=== PATIENT | female | born 1990 | race Caucasian/White ===

== ENCOUNTER 2024-12-06 15:30 | Outpatient (CLI) | payer SELFPAY ==
[2024-12-06 16:42] LABS: #Basophils 0.06 10x3/uL (0.0-0.2); #Monocytes 0.53 10x3/uL (0.0-1.1); #Neutrophils 3.76 10x3/uL (1.5-8.4); %Basophils 0.9 % (0.0-2.0); %Eosinophils 1.5 % (0.0-6.0); %Lymphocytes 31.8 % (18.0-47.0); %Monocytes 8.1 % (0.0-10.0); %Neutrophils 57.4 % (40.0-75.0); Hematocrit 44.7 % (34.9-44.5); Hemoglobin 14.8 g/dL (12.0-15.5); Mean Corpuscular HGB CONC 33.1 g/dL (32.0-36.0); Mean Corpuscular Hemoglobin 29.1 pg (27.0-33.0); Mean Corpuscular Volume 87.8 fL (81.6-98.3); Mean Platelet Volume 9.9 fL (7.4-10.4); Platelet Count 382 10x3/uL (150-450); RBC Distribution Width 12.1 % (11.5-14.5); Red Blood Cell (RBC) Count 5.09 10x6/uL (3.90-5.03); White Blood Cell (WBC) Count 6.55 10x3/uL (3.5-10.5)
[2024-12-06 17:02] LABS: ALT (SGPT) 29 U/L (8-55); AST (SGOT) 21 U/L (5-34); Albumin 4.2 g/dL (3.5-5.0); Alkaline Phosphatase 68 U/L (40-110); Anion Gap 15 mmol/L (10-20); BUN (Urea Nitrogen) 9 mg/dL (7.0-18.7); Bilirubin, Direct 0.2 mg/dL (0.1-0.3); Bilirubin, Total 0.5 mg/dL (0.2-1.2); Calc. Creatinine Clearance 0 mL/min (70-130); Calcium 9.8 mg/dL (7.8-10.44); Carbon Dioxide 22 mmol/L (22-29); Chloride 105 mmol/L (98-107); Estimated GFR 104; Glucose 76 mg/dL (70-105); Potassium 4.2 mmol/L (3.5-5.1); Protein, Total 8.2 g/dL (6.0-8.3); Sodium 138 mmol/L (136-145)
== END 2024-12-06 15:31 | disposition home or self-care (01) ==
LOC: CSHLAB 15:30
PROVIDERS: ATTEND Surgery
DX: Z01.812 Encounter for preprocedural laboratory examination (principal); K81.9 Cholecystitis, unspecified
CPT/HCPCS: 80048; 80076; 85025

== ENCOUNTER 2024-12-08 06:39 | Day surgery (SDC) | payer SELFPAY ==
[2024-12-08] MEDS ORDERED: Indocyanine Green 25 MG/10 ML VIAL ONE (08:02)
[2024-12-08] MEDS ORDERED: Rocuronium Bromide 10 MG/ML (10ML VIAL) ONE (08:09)
[2024-12-08] MEDS ORDERED: fentaNYL 50 mcg/mL 1 mL Vial ONE ×2 (08:09→10:48)
[2024-12-08] MEDS ORDERED: Lidocaine 1% PF 5 ML VIAL ONE (08:09)
[2024-12-08] MEDS ORDERED: PROPOFOL 20 ML ONE (08:09)
[2024-12-08] MEDS ORDERED: Midazolam HCl 2 mg/2 ml Vial ONE (08:53)
[2024-12-08] MEDS ORDERED: Bupivacaine/Epinephrine 0.25% 30 ML VIAL ONE (08:54)
[2024-12-08] MEDS ORDERED: CEFAZOLIN 2 GM VIAL ONE (09:09)
[2024-12-08] MEDS ORDERED: Ondansetron PF 4 MG/2 ML Vial ONE (09:28)
[2024-12-08] MEDS ORDERED: Dexamethasone 20 MG/5 ML VIAL ONE (09:28)
[2024-12-08] MEDS ORDERED: Esmolol 100 MG/10 ML VIAL ONE (09:33)
[2024-12-08] MEDS ORDERED: SUGAMMADEX SODIUM 200 MG/2 ML VIAL ONE (10:07)
[2024-12-08] MEDS ORDERED: Ketorolac Tromethamine 30 MG (1 mL) VIAL ONE (10:12)
[2024-12-08] MEDS ORDERED: Meperidine HCl/PF 25 MG (1 mL) VIAL ONE (10:33)
[2024-12-08] MEDS ORDERED: HYDROcodone/Acetaminophen 5/325 mg Tablet ONE (11:51)
== END 2024-12-08 12:30 | disposition home or self-care (01) ==
LOC: CSHSDC 06:39
PROVIDERS: ATTEND Surgery
PROC: 0FT44ZZ Resection of Gallbladder, Percutaneous Endoscopic Approach (ICD-10-PCS; principal; 2024-12-08)
DX: K80.12 Calculus of gallbladder with acute and chronic cholecystitis without obstruction (principal); Z98.51 Tubal ligation status; Z79.899 Other long term (current) drug therapy
CPT/HCPCS: 88304; C1889; J1100; J1885; J2175; J2250; J2405; J2704; J3010; S2900